=== PATIENT | female | born 1975 | race African-American/Black ===

== ENCOUNTER → 2017-07-12 12:50 | Outpatient (CLI) | payer OTHER, SELFPAY ==
[2017-07-18 04:13] LABS: QNTFERON TB Ag Minus Nil Value 0.11 IU/mL (.); QNTFERON TB Ag Value 0.15 IU/mL (.); QNTFERON TB Mitogen Value > 10.00 IU/mL (.); QNTFERON TB Nil Value 0.04 IU/mL (.)
[2017-07-18 10:18] LABS: QNTIFERON TB Gold Negative (Negative)
== END ==
PROVIDERS: Visit Provider Student in an Organized Health Care Education/Training Program
DX: Z02.0 Encounter for examination for admission to educational institution (principal)
CPT/HCPCS: 36415; 86480